=== PATIENT | female | born 1940 | race Caucasian/White ===

== ENCOUNTER → 2018-01-21 | Outpatient (CLI) | payer OTHER ==
[~2018-01-21] MED LIST: ACCUNEB SO1.25 MG/1; ARAVA10 MG PO; ASPERCREME 1141.7 GM TOP; ATIVAN0.5 MG IV PUSH; ATIVAN0.5 MG PO; COZAAR 50 MG TA50 M1 PO; DUONEB 2.5-0.5 M3 ML INH; FLORANEX TABLE1 EACH PO; FOLIC ACID1 MG PO; HYZAAR 100-12.1 EACH PO; KCL PO; KLOR-CON 10 ER10 MEQ PO; LEVAQUIN 500 M500 M2 PO; LORTAB 10 MG-3473 ML; LORTAB 10 MG-3473 ML PO; LORTAB ELIXIR; LOSARTAN POTAS100 MG PO; MAGNESIUM400 MG PO; MEGESTROL40 MG/1 M1 PO; METHOTREXATE 22.5 M1 PO; METHOTREXATE 22.5 MG PO; MIRTAZAPINE15 M2 PO; MIRTAZAPINE7.5 MG PO; NOVOLOG100 UNIT/1 SQ; ONDANSETRON HCL4 M2; PERCOCET 5-3251 EACH PO; POTASSIUM20; POTASSIUM20 PO; POTASSIUM40 MEQ/11 PO; PREDNISONE 10 M10 MG PO; PREDNISONE 20 M20 MG PO; PREDNISONE 5 MG5 MG PO; PROAIR HFA8.5 GM IH; PROTONIX40 M1 PO; REMERON15 MG PO; VENTOLIN HFA 1818 GM INH; XARELTO15 MG PO; XARELTO20 MG PO; [UNRECOGNIZED DRUG - OTHER]; losartan potassium PO
== END ==
LOC: M.RAD 11:52
DX: J18.1 Lobar pneumonia, unspecified organism (principal); R09.89 Other specified symptoms and signs involving the circulatory and respiratory systems; M19.012 Primary osteoarthritis, left shoulder; M19.011 Primary osteoarthritis, right shoulder

== ENCOUNTER 2019-07-04 08:53 | Emergency (ER) | payer MEDICARE, BC ==
[~2019-07-04] VITALS: Ht 162.6 cm; Wt 81.7 kg
[2019-07-04] MEDS ORDERED: VALSARTAN40 MG PO (09:04)
[2019-07-04] MEDS ORDERED: CHLORTHALIDONE25 MG PO (09:04)
[2019-07-04 10:09] LABS: CALCIUM 8.6 mg/dL (8.5-10.1); CREATININE 0.8 mg/dL (0.6-1.3)
[2019-07-04 10:13] LABS: ALBUMIN 3.4 g/dL (3.4-5.0); TOTAL BILIRUBIN 1.2 mg/dL (<0.1-1.0); TOTAL PROTEIN 6.5 g/dL (6.4-8.2)
[2019-07-04] MEDS ORDERED: HYDROCODON-ACE1 EAC7 PO (10:52)
[2019-07-04 11:07] VITALS: BP 145/65
== END 2019-07-04 11:08 | disposition home or self-care (01) ==
LOC: M.ERS 08:53
PROVIDERS: Emergency Medicine
DX: M19.011 Primary osteoarthritis, right shoulder (principal); E87.6 Hypokalemia; I10 Essential (primary) hypertension; Z90.49 Acquired absence of other specified parts of digestive tract